=== PATIENT | female | born 1975 | race Caucasian/White ===

== ENCOUNTER 2018-06-08 08:53 | Outpatient (CLI) | payer BC, SELFPAY ==
[2018-06-08 09:37] LABS: ALT 20 U/L (12-78); AST 19 U/L (15-37); Albumin 3.9 g/dL (3.4-5.0); Alkaline Phosphatase 98 U/L (46-116); Anion Gap 8.6 mmol/L (3-11); BUN 15 mg/dL (7-18); Bilirubin, Total 0.4 mg/dL (0.2-1.0); CO2 31.4 mmol/L (21.0-32.0); Calcium 10.2 mg/dL (8.5-10.1); Chloride 102 mmol/L (98-107); Glucose 91 mg/dL (70-100); Potassium 3.9 mmol/L (3.5-5.1); Sodium 142 mmol/L (136-145); Total Protein 7.4 g/dL (6.4-8.2)
[2018-06-09 03:21] LABS: Estradiol <12 pg/ml
[2018-06-09 09:18] LABS: FSH 8.5 mIU/ml
[2018-06-10 05:14] LABS: Vitamin D 25 Total 44.2 ng/ml (30-100)
== END 2018-06-08 09:13 ==
PROVIDERS: PCP Nurse Practitioner; Visit Provider Internal Medicine Hematology & Oncology
DX: C50.411 Malignant neoplasm of upper-outer quadrant of right female breast (principal); Z17.0 Estrogen receptor positive status [ER+]; E55.9 Vitamin D deficiency, unspecified
CPT/HCPCS: 36415; 80053; 82306; 82670; 83001

== ENCOUNTER 2018-07-22 08:05 | Outpatient (CLI) | payer BC, SELFPAY ==
[2018-07-22 08:30] LABS: HCT 43.2 % (36.0-46.0); HGB 14.2 g/dL (12.0-15.5); Mean Corp. HGB Concentration 32.9 g/dL (32.0-36.0); Mean Corpuscular Hemoglobin 30.1 pg (27.0-33.0); Mean Corpuscular Volume 91.5 fL (80-95); Mean Platelet Volume 9.5 fL (8.0-11.0); Platelet Count 212 x1000/uL (130-400); RBC 4.72 m/cumm (4.00-5.20); RBC Distribution Width 12.9 % (11.7-14.6); White Blood Cell Count 3.78 k/cumm (4.4-10.8)
[2018-07-22 09:35] LABS: ALT 24 U/L (12-78); AST 22 U/L (15-37); Albumin 4.1 g/dL (3.4-5.0); Alkaline Phosphatase 104 U/L (46-116); Anion Gap 9.5 mmol/L (3-11); BUN 13 mg/dL (7-18); Bilirubin, Total 0.3 mg/dL (0.2-1.0); CO2 31.5 mmol/L (21.0-32.0); Calcium 9.6 mg/dL (8.5-10.1); Chloride 104 mmol/L (98-107); Cholesterol 218 mg/dL (50-200); Glucose 81 mg/dL (70-100); HDL Cholesterol 88 mg/dL (40-60); LDL CHOLESTEROL 108 mg/dL (<100); Sodium 145 mmol/L (136-145); TSH (W/Ref FT4) 1.81 uIU/mL (0.358-3.74); Total Protein 7.3 g/dL (6.4-8.2); Triglyceride 61 mg/dL (30-150)
[2018-07-23 10:41] LABS: Parathyroid Hormone,Intact 48 pg/ml (19-88)
== END 2018-07-22 08:25 ==
PROVIDERS: PCP Nurse Practitioner; Visit Provider Nurse Practitioner Family
DX: Z00.00 Encounter for general adult medical examination without abnormal findings (principal); E83.52 Hypercalcemia; Z13.220 Encounter for screening for lipoid disorders; N95.1 Menopausal and female climacteric states
CPT/HCPCS: 36415; 80053; 80061; 83721; 85027; 83970; 84443

== ENCOUNTER 2018-10-06 16:44 | Outpatient (REF) | payer BC, SELFPAY ==
[2018-10-06 22:31] LABS: Anion Gap 9.6 mmol/L (3-11); BUN 12 mg/dL (7-18); CO2 29.4 mmol/L (21.0-32.0); CREATININE 0.78 mg/dL (0.55-1.02); Calcium 9.8 mg/dL (8.5-10.1); Chloride 102 mmol/L (98-107); Glucose 103 mg/dL (70-100); Potassium 3.5 mmol/L (3.5-5.1); Sodium 141 mmol/L (136-145)
[2018-10-06 22:36] LABS: HCT 45.8 % (36.0-46.0); HGB 14.9 g/dL (12.0-15.5); Mean Corp. HGB Concentration 32.5 g/dL (32.0-36.0); Mean Corpuscular Hemoglobin 29.9 pg (27.0-33.0); Mean Platelet Volume 11.4 fL (8.0-11.0); Platelet Count 213 x1000/uL (130-400); RBC 4.98 m/cumm (4.00-5.20); RBC Distribution Width 13.6 % (11.7-14.6); White Blood Cell Count 5.23 k/cumm (4.4-10.8)
[2018-10-06 22:42] LABS: Bilirubin Negative (Negative); Blood Moderate (Negative); Clarity Clear; Glucose Negative (Negative); Ketones Negative (Negative); Leukocyte Esterase Small (Negative); Nitrite Negative (Negative); Specific Gravity 1.015 (1.005-1.025); Urobilinogen 0.2 EU/dL (Up TO 0.2)
[2018-10-06 22:48] LABS: Bacteria Moderate HPF (Negative); C & S Indicated? Yes; Casts Negative LPF (Negative); Crystals Negative HPF (Negative); Epithelial Cells Few HPF (Negative); Mucus Negative (Negative); WBC 20-50 HPF (0-5)
== END 2018-10-06 17:04 ==
LOC: NCHCN 16:44
PROVIDERS: PCP Nurse Practitioner; Visit Provider Nurse Practitioner Family
DX: R31.9 Hematuria, unspecified (principal); R35.0 Frequency of micturition; L29.8 Other pruritus
CPT/HCPCS: 80048; 85027; 87077; 81003; 81015; 87086; 87186; 87480; 87510; 87660

== ENCOUNTER 2018-11-24 18:43 | Outpatient (REF) | payer BC, SELFPAY ==
[2018-11-24 21:24] LABS: Bilirubin Negative (Negative); Blood Trace-intact (Negative); Clarity Sl Cloudy (Clear); Glucose Negative (Negative); Ketones Negative (Negative); Leukocyte Esterase Trace (Negative); Nitrite Negative (Negative); Specific Gravity 1.015 (1.005-1.025)
[2018-11-24 22:16] LABS: Bacteria Moderate HPF (Negative); Crystals Moderate Amorphous HPF (Negative); Epithelial Cells Rare HPF (Negative); Other Cells Negative (Negative)
[2018-11-24 22:17] LABS: C & S Indicated? C&S Done As Ordered; Casts Negative LPF (Negative); Mucus Negative (Negative)
== END 2018-11-24 19:03 ==
LOC: NCHCN 18:43
PROVIDERS: PCP Nurse Practitioner; Visit Provider Nurse Practitioner Family
DX: R14.0 Abdominal distension (gaseous) (principal)
CPT/HCPCS: 87077; 81003; 81015; 87086; 87186

== ENCOUNTER 2020-03-29 16:41 | Outpatient (CLI) | payer BC, SELFPAY ==
--- NOTE | 2020-03-29 15:27 | DI.RAD_ITS ---
EXAM: XR TIB/FIB LT CLINICAL HISTORY: LT LEG PAIN M79.605. TECHNIQUE: 2D digital imaging was performed COMPARISON: No exams were available for comparison FINDINGS: BONES: No acute fracture is present. No bony destructive lesion is seen. Visualized portion of knee a nd ankle joints are unremarkable. SOFT TISSUE: Normal. IMPRESSION: No acute fracture or dislocation. DATA REPOSITORY: RADIATION DOSE DELIVERED:
== END 2020-03-29 17:01 ==
PROVIDERS: PCP Nurse Practitioner; Visit Provider Nurse Practitioner Family
DX: M79.605 Pain in left leg (principal)
CPT/HCPCS: 73590

== ENCOUNTER 2022-07-24 16:32 | Outpatient (REF) | payer BC, SELFPAY ==
[2022-07-24 21:15] LABS: Abs Immature Grans 0.02 10^3/uL (0.0-0.06); Absolute Basophil Count 0.04 10^3/uL (0.0-0.2); Absolute Eosinophil Count 0.11 10^3/uL (0.0-0.7); Absolute Lymphocyte Count 1.53 10^3/uL (1.2-3.4); Absolute Monocyte Count 0.48 10^3/uL (0.1-0.8); Absolute Neutrophil Count 4.31 10^3/uL (1.2-6.7); Basophils % 0.6; Eosinophils % 1.7; HCT 44.2 % (36.0-46.0); HGB 14.3 g/dL (11.2-15.7); Immature Grans % 0.3; Lymphocytes % 23.6; MCH 29.5 pg (27.0-33.0); MCHC 32.4 % (32.0-36.0); MCV 91 fL (80-95); MPV 10.6 fL (8.0-11.0); Monocytes % 7.4; Neutrophils % 66.4; Platelet Count 234 10^3/uL (130-400); RBC 4.84 10^6/uL (3.93-5.22); RDW 12.7 % (11.7-14.6); RDW-SD 42.6 fL; WBC 6.49 10^3/uL (4.4-10.8)
[2022-07-24 21:33] LABS: ALT 50 U/L (14-59); AST 40 U/L (15-37); Albumin 4.2 g/dL (3.4-5.0); Alkaline Phosphatase 82 U/L (46-116); Anion Gap 6.5 mmol/L (3-11); BUN 17 mg/dL (7-18); Bilirubin, Total 0.5 mg/dL (0.2-1.0); CO2 28.5 mmol/L (21.0-32.0); CREATININE 0.9 mg/dL (0.55-1.02); Calcium 9.7 mg/dL (8.5-10.1); Chloride 102 mmol/L (98-107); Estimated GFR 78.86 (mL/min/1.73m2); Glucose 83 mg/dL (74-106); Lipase 34 U/L (16-77); Potassium 3.8 mmol/L (3.5-5.1); Sodium 137 mmol/L (136-145); Total Protein 7.6 g/dL (6.4-8.2)
== END 2022-07-24 16:33 | disposition home or self-care (01) ==
LOC: NCHCN 16:32
PROVIDERS: PCP Nurse Practitioner; Visit Provider Family Medicine
DX: R10.9 Unspecified abdominal pain (principal)
CPT/HCPCS: 80053; 83690; 85025

== ENCOUNTER 2023-02-03 18:15 | Outpatient (REF) | payer BC, SELFPAY ==
[2023-02-03 14:26] LABS: Bilirubin Negative (Negative); Blood Small (Negative); Clarity Clear (Clear); Glucose Negative (Negative); Ketones Negative (Negative); Leukocyte Esterase Negative (Negative); Nitrite Negative (Negative); Specific Gravity 1.025 (1.005-1.025); Urobilinogen 0.2 mg/dL (Up to 0.2); pH 6.5 (5-8)
[2023-02-03 14:33] LABS: Bacteria Rare HPF (Negative); C & S Indicated? No; Casts Negative LPF (Negative); Crystals Negative HPF (Negative); Epithelial Cells Rare HPF (Negative); Mucus Trace (Negative); Other Cells Negative (Negative)
== END 2023-02-03 18:16 | disposition home or self-care (01) ==
LOC: NCHCN 18:15
PROVIDERS: PCP Nurse Practitioner Family; Visit Provider Nurse Practitioner Family
DX: R31.9 Hematuria, unspecified (principal)
CPT/HCPCS: 81003; 81015

== ENCOUNTER 2023-02-12 08:22 | Day surgery (SDC) | payer BC, SELFPAY ==
--- NOTE | 2023-02-11 19:55 | W.PM.DSUDISC ---
Date of service: 02/12/23 Time of Service: 10:15 Discharge Plan Disposition Patient Disposition: Home Condition: Good Discharge Details Reason For Visit: screening colonoscopy Attending Provider: Maykel Nelson Primary Care Provider: Cheri Moyer Home Meds and New Rx's Prescriptions: Continued multivitamin Tablet 1 tab PO DAILY biotin 1 mg capsule 1 mg PO DAILY cholecalciferol (vitamin D3) 10 mcg (400 unit) capsule 10 mcg PO DAILY exemestane [Aromasin] 25 mg tablet 25 mg PO DAILY Rx Instructions: must administer after a meal ibuprofen 200 mg capsule 200 mg PO Q6H PRN Discontinued bisacodyl [Dulcolax (bisacodyl)] 5 mg tablet,delayed release (DR/EC) 5 mg PO ONCE Qty: 4 0RF Rx Instructions: Colonoscopy Bowel Prep- Per Instructions polyethylene glycol 3350 17 gram/dose powder 238 g PO ONCE Qty: 238 0RF Rx Instructions: Colonoscopy Bowel Prep- Per Instructions Discharge Instructions Additional Instructions: Gale, your colonoscopy went just fine today. I did not see any signs of tumors, polyps, or really anything worrisome. You did have a little bit of inflammation in your rectum when I first started the procedure. I did do some biopsies here to make sure that it is nothing out of the ordinary. By the end of the procedure, this area really looked normal. In that regards, I do not think you have anything to worry about. We will be on the look out for the results of the biopsies just to be safe. As soon as I get that information I will let you know. 1. If tolerated, consume a soft, low fiber diet for 1-2 days. 2[address] Do not drive, drink alcohol, operate machinery, make critical decisions, or do activities that require coordination or balance for 24 hours. 3. Because air was put into your colon during the procedure, expelling air from your rectum (passing gas or farting) is normal. 4. You may not have a bowel movement for 1-3 days because of the colonoscopy prep. This is normal. 5. Go directly to the emergency room if you notice any of the following: Develop chills (warm to touch), or if you have a thermometer and your temperature is above 101 Difficulty breathing or difficultly swallowing Persistent vomiting Severe abdominal pain, other than gas cramps Severe chest pain Black, tarry stools Any bleeding ? exceeding one tablespoon 6. Call your physician if the site where your intravenous was started becomes red, swollen, painful, and warm to touch. 7. Your physician has reviewed your pre-procedure medications. Please continue to take those medications as previously ordered. You will be given specific information/education regarding any changes to your medications before leaving. Activity:: Activity as Tolerated Diet:: As Tolerated Discharge Orders Discharge Orders: Discharge Order (Routine); Ordered 02/11/23 Ordered By: Maykel Nelson DS: Diagnosis Discharge Diagnosis (1) Screen for colon cancer: Status: Acute Asessment and Plan: Mild inflammation of the rectum, biopsies were performed, otherwise negative screening colonoscopy. I will follow-up on the biopsy results
--- NOTE | 2023-02-11 19:57 | COLE_ITS ---
Date of service: 02/12/23 Time of Service: 10:16 Colonoscopy Report Date of procedure: 02/12/23 Pre-op diagnosis general: screening colonoscopy Post-op diagnosis procedure note: other (Negative screening colonoscopy) Procedure: colonoscopy with rectal biopsies Surgeon: Maykel Nelson Anesthesia Type: General:No Airway Estimated blood loss (mL): 5 Pathology: other (Rectal biopsies) Complications: None Disposition: same day Indications: Gale is 47 years old and she is here for her first screening colonoscopy Prep: Miralax/Dulcolax Procedure Start Time: 09:42 Procedure End Time: 09:59 Retraction Time: 13 Findings: Mild inflammation of the rectum at the start of the procedure that had improved by the end Procedure Description: After the induction of monitored anesthetic care, and with the patient in left lateral decubitus position, I began by performing an external anorectal exam.? Perineum and skin were normal, as was the anal verge.? There was no evidence of external hemorrhoids.? Next, I performed a digital rectal exam.? I did not appreciate any abnormal findings.? Next, I advanced a colonoscope into the rectal vault.? I performed retroflexion.? This appeared normal.? As I turned the camera back antegrade, there was just a little bit of linear inflammation within the midportion of the rectum. Essentially, there were punctate areas of normal- appearing mucosa, with mild surrounding erythema. I did perform some random biopsies here. This was done with cold forceps and there was minimal bleeding. Using insufflation, I then advanced the colonoscope beyond the rectal folds and into the sigmoid colon before advancing towards the cecum.? The quality of the prep was [].? The scope was noted to be in the cecum by identification of the ileocecal valve and appendiceal orifice.? I then began withdrawing the colonoscope using repeated irrigation as necessary for full evaluation of the colonic mucosa. ?Once the scope was withdrawn to the level of the rectum, great care was taken to examine portions of the rectal folds.? Circular areas of erythema were largely resolved by this portion. The biopsy sites looked fine. Finally, the scope was withdrawn and the patient was brought to the same-day surgery recovery unit as the anesthetic wore off. ?The findings and instructions were shared with the patient prior to discharge.
[2023-02-12 08:35] VITALS: BP 126/89; PULSE 85; RESP 17; TEMP 37; O2SAT 100
--- NOTE | 2023-02-12 09:12 | W.ANESPRE ---
General Info Date of Service Date Performed: 02/12/23 Height: 5 ft 5 in Weight: 64.9 kg Body Mass Index (BMI): 23.8 Surgical Procedure: Operation Date: 02/12/23 09:50 Proposed Procedure Side Surgeon p Zeinab Nelson MD Meds Allergies and Home Medications Allergies Allergy/AdvReac Type Severity Reaction Status Date / Time No Known Drug Allergies Allergy Verified 02/12/23 08:35 Home Medication Medication Instructions Recorded biotin 1 mg capsule 1 mg PO DAILY 11/14/22 cholecalciferol (vitamin D3) 10 10 mcg PO DAILY 11/14/22 mcg (400 unit) capsule exemestane 25 mg tablet (Aromasin) 25 mg PO DAILY 11/14/22 ibuprofen 200 mg capsule 200 mg PO Q6H PRN 11/14/22 multivitamin 1 tab PO DAILY 01/28/23 Current Visit Medications: Current Medications Generic Name Dose Route Start Last Admin Trade Name Freq PRN Reason Stop Dose Admin Hyoscyamine Sulfate 0.125 mg 02/11/23 19:59 Hyoscyamine 0.125 Mg Sl/Oral/Chew SL 03/13/23 19:58 DIRECTED PRN Ondansetron HCl 4 mg 02/11/23 19:59 Ondansetron 4 Mg/2 Ml Vial IVP 03/13/23 19:58 Q4H PRN PRN Nausea / Vomiting PFSH Active Problems Active Problems: Problem Status Onset Code Screen for colon cancer Z12.11 Medical History Medical History Breast cancer, right Surgical History Surgical History Hx of right mastectomy Tobacco Smoking/Tobacco Use Status: Former Tobacco Use Alcohol Alcohol Intake: current Alcohol intake frequency: a few times a week Substance Use Substance use: Never Substance use type: does not use Vital Signs and Lab Results Vital Signs Most Recent Vital Signs in EMR: Most Recent Vital Signs Temp Pulse Resp BP Pulse Ox 37.0 C 85 17 126/89 100 02/12/23 08:35 02/12/23 08:35 02/12/23 08:35 02/12/23 08:35 02/12/23 08:35 Point of Care Results Point of Care Results: POC- Test(urine) Negative 02/12/23 08:48 Lab Results Blood Type / Crossmatch: No Data to Display Complete Blood Count: No Data to Display Complete Metabolic Panel: No Data to Display Liver Function Panel: No Data to Display Coagulation Panel: No Data to Display Cardiac Panel: No Data to Display Arterial Blood Gas: No Data to Display Venous Blood Gas: No Data to Display Pancreas Panel: No Data to Display Thyroid Panel: No Data to Display Infectious Disease: No Data to Display Blood Cultures: No Data to Display Toxicology Panel: No Data to Display Panel: No Data to Display Anesthesia Assessment and Plan Anesthesia History Personal History: No History of Anesthesia Complications Family History: No Family History of Anesthesia Complications Exercise Tolerance Exercise Tolerance: Metabolic Equivalents>4 Pertinent Negatives Pertinent Negatives: No Symptoms of GERD, No Major Cardiovascular Symptoms or Complaints, No Major Pulmonary Symptoms or Complaints (childhood asthma) and No History of CVA/TIA Cardiac & Pulmonary Exam Cardiac Exam: Normal S1/S2 Heart Sounds Pulmonary Exam: Clear Bilateral Breath Sounds Implantable Cardiac Device Does patient have a Pacemaker or an ICD?: No Airway Exam Known Difficult Airway: No Mallampati Class: 2 Mouth Opening: Normal (> 3cm) Thyromental Distance: Greater than 3 cm Neck Range of Motion: Full ROM Neck Circumference: Normal Teeth Condition: Normal Dentition ASA Classification ASA Score: ASA 2 Emergency Case?: No NPO Status NPO Status: NPO Clears >2 hours, Solids >8 hours Status Status: Not Relevant due to Medical History Anesthesia Plan Resuscitation Status: Full Code Anesthesia Technique: General Anesthesia Airway Planned: Natural Airway Monitors Used: Standard Monitors Preoperative Comments:: tubal ligation in the past as well. Right limb restriction, right mastectomy.
[2023-02-12 09:16] VITALS: BMI 23.8
[2023-02-12] MEDS: Lactated Ringers 1,000 ML 80 ML IV (09:29)
--- NOTE | 2023-02-12 09:45 | BOWEL_PTH ---
PATIENT: Gale Hope LOC: [facility] U#:[id number] AGE/SX: 47/F ROOM: RE02/12/[address]: Maykel Nelson MD : 1975 BED: DIS: 02/12/2023 SPEC #: [id number] RECD: 02/12/23 12:33 STATUS: BRET REQ #: [id number] MARNI: 02/12/23 09:[address]: Maykel Nelson DEPT: Surgical Specimen RECD BY: Jaquelin Martin ENTERED: 02/12/23 12:34 SP TYPE: Bowel OTHR DR: Cheri Moyer Tissues: 1 - BIOPSY BOWEL Procedures: GROSS AND MICRO LEVEL 4 Comments: [id number]
[2023-02-12 10:05] VITALS: BP 108/70; PULSE 93; RESP 16; TEMP 36.5; O2SAT 100
[2023-02-12 10:35] VITALS: BP 117/89; PULSE 69; RESP 16; TEMP 36.5; O2SAT 100
--- NOTE | 2023-02-12 10:40 | W.ANESPOSTOP ---
Postoperative Evaluation Date, Time and Location Date Performed: 02/12/23 Time Performed: 10:14 Patient Location: Day Surgery Unit Vital Signs Most Recent Imported Vital Signs: Most Recent Vital Signs Temp Pulse Resp BP Pulse Ox 36.5 C 93 H 16 108/70 100 02/12/23 10:05 02/12/23 10:05 02/12/23 10:05 02/12/23 10:05 02/12/23 10:05 Pain Score Most Recent Pain Score: Most Recent Pain Score Pain Level 0 02/12/23 10:05 Assessment Mental Status: Awake (Alert & Oriented to Patient Baseline) Airway and Respiratory Function: Patent airway with normal (patient baseline) respiratory exam Cardiovascular Function: Hemodynamically Stable Hydration Status: Adequately Hydrated Nausea & Vomiting: No Nausea or Vomiting Pain: Pt. Denies Any Pain Peripheral Nerve Block: Patient did not receive a nerve block
== END 2023-02-12 10:49 | disposition home or self-care (01) ==
PROVIDERS: PCP Nurse Practitioner Family; Visit Provider Surgery
PROC: 0DJD8ZZ Inspection of Lower Intestinal Tract, Via Natural or Artificial Opening Endoscopic (ICD-10-PCS; CPT 45378; principal; 2023-02-12 09:45)
DX: Z12.11 Encounter for screening for malignant neoplasm of colon (principal); Z85.3 Personal history of malignant neoplasm of breast
CPT/HCPCS: 45378; 81025; 88305; J2001; J2405

== ENCOUNTER → 2023-09-24 03:47 | Outpatient (CLI) | payer BC, SELFPAY ==
--- NOTE | 2023-09-24 | DI.MRI_ITS ---
Exam(s) MR LUMBAR SPINE WO/W EXAM: MR LUMBAR SPINE WO/W CLINICAL HISTORY: C50.919 Stage III Breast CA,M54.50 Lt sided LBP w/o sciatica. TECHNIQUE: Multiplanar multisequence MRI of the Lumbar spine was performed. Both pre and post contra st infused sequences were performed. Contrast injected was IV Dotarem 13 mL COMPARISON: No exams were available for comparison FINDINGS: Five lumbar vertebrae are presumed. Conus medullaris is at normal level. There is no evidence of conus mass nor subjacent clumping of in trathecal nerve roots to suggest arachnoiditis. The distal thecal sac appears unremarkable.There is no evidence of Tarlov intrasacral cysts nor other significant findings within the sacral canal there are no enhancing nodules along the cauda equina nor within the intradural and epidural spaces. Bones:No fractures nor listhesis. There are Modic type 1 sub endplate marrow edema findings on the l eft side of the L4-5 disc space (see below). In the right side of the L4 vertebral body there is a n onexpansile bone lesion measuring 2.4 cm craniocaudal by 2.3 cm wide by 2.5 cm AP. This exhibits sig nal characteristics of a benign intraosseous hemangioma. In the posterior aspect of the L1 vertebral body there is a smaller appearing nonexpansile bone lesion measuring 1.0 cm AP x 1.0 cm wide by 1.0 cm craniocaudal. This does not exhibit typical signal characteristics of a hemangioma on STIR and al so exhibits some contrast enhancement. I suspect that this is an atypical hemangioma but cannot excl ude metastatic lesion, given the history here. Similar appearing finding at the S2 level of the sacr um With respect to the individual disc levels... T12-L1: Unremarkable L1-2: Normal disc height and signal. No disc herniation nor central canal stenosis.No foraminal steno sis L2-3: Normal disc height. No disc herniation nor central canal stenosis.No foraminal stenosis.No face t arthropathy. L3-4: Normal disc height. There is relatively symmetrical annular bulging at this level. There is a lso a tiny posterolateral right disc protrusion more evident on the sagittal than on axial images. D oes not cause significant foraminal stenosis on the right side. Central canal dimensions are lower n ormal. No foraminal stenosis on the left side. No significant facet arthropathy. L4-5: Minimal decreased disc height on the left side of the disc space where there are Modic type 1 s ub endplate marrow edema changes confined to the left side of the space and extending into lateral le ft osteophytes this level. There is mild annular bulging without a dominant disc herniation at this level. Annular bulging mildly effaces the anterior thecal sac with mild central canal stenosis. No prominent facet arthropathy. No significant foraminal stenosis on either side at this level. L5-S1: Normal disc height and signal. No disc herniation or central canal stenosis. No foraminal st enosis. Minimal facet joint degenerative changes evident. Soft tissues: paraspinal soft tissues appear unremarkable. IMPRESSION: 1. There is a very small posterolateral right disc protrusion at L3-4 level. There is no significant canal stenosis nor foraminal stenosis on either side at this level. 2. There are Modic type 1 sub endplate marrow edema changes on the left side of the L4-5 disc space. At this location there is mild disc height loss and marginal osteophytes off the lateral aspect of t he disc space but without a true disc herniation evident and no evidence of significant foraminal blaise nosis on either side at this level nor evidence of central canal stenosis. 3. There are no enhancing lesions in the epidural space nor in the cauda equina, given the history he re. 4. There is a benign intraosseous hemangioma in the right side of L4 vertebral body measuring 2.4 x 2.3 x 2.5 cm. 5. In the posterior aspect of L1 vertebral body there is a smaller 1.0 x 1.0 x 1.0 cm non expansile bone lesion which exhibits some enhancement and does not exhibit typical signal characteristics of a benign intraosseous hemangioma. It may represent an atypical hemangioma but given the history here c annot exclude a subtle early metastatic bone lesion. For this reason I recommend follow-up whole bod y nuclear bone scan. DATA REPOSITORY:
[2023-09-24] MEDS: Normal Saline Flush 10 ML SYR IVP (09:40)
[2023-09-24] MEDS: Gadoterate meglumine 20 ML SYRINGE 13 ML IVP (09:41)
[2023-09-24 09:46] LABS: Anion Gap 8.3 mmol/L (3-11); BUN 12 mg/dL (7-18); CO2 28.7 mmol/L (21.0-32.0); CREATININE 0.8 mg/dL (0.55-1.02); Calcium 9.3 mg/dL (8.5-10.1); Chloride 104 mmol/L (98-107); Estimated GFR 90.27 (mL/min/1.73m2); Glucose 87 mg/dL (74-106); Potassium 4.3 mmol/L (3.5-5.1); Sodium 141 mmol/L (136-145)
== END ==
PROVIDERS: PCP Nurse Practitioner Family; Visit Provider Internal Medicine Hematology & Oncology
DX: M51.36 Other intervertebral disc degeneration, lumbar region (principal)
CPT/HCPCS: 72158; 80048

== ENCOUNTER 2023-10-01 18:56 | Outpatient (REF) | payer BC, SELFPAY ==
[2023-10-01 21:24] LABS: Bacteria Few HPF (Negative); C & S Indicated? C&S Done As Ordered; Casts Negative LPF (Negative); Crystals Negative HPF (Negative); Epithelial Cells Few HPF (Negative); Mucus Negative (Negative); RBC 0-2 HPF (0-2); WBC 20-50 HPF (0-5)
== END 2023-10-01 18:57 | disposition home or self-care (01) ==
LOC: NCHCN 18:56
PROVIDERS: PCP Nurse Practitioner Family; Visit Provider Nurse Practitioner Family
DX: R31.9 Hematuria, unspecified (principal); B96.20 Unspecified Escherichia coli [E. coli] as the cause of diseases classified elsewhere
CPT/HCPCS: 87077; 81015; 87086; 87186

== ENCOUNTER 2024-09-19 14:10 | Outpatient (REF) | payer BC, SELFPAY | END 2024-09-19 14:11 | disposition home or self-care (01) | LOC: NCHCN 14:10 | PROVIDERS: PCP Nurse Practitioner Family; Visit Provider Nurse Practitioner Family | DX: R35.0 Frequency of micturition (principal); R82.89 Other abnormal findings on cytological and histological examination of urine; B96.29 Other Escherichia coli [E. coli] as the cause of diseases classified elsewhere | CPT/HCPCS: 87077; 87086; 87186 ==

== ENCOUNTER 2024-09-28 15:56 | Outpatient (REF) | payer BC, SELFPAY ==
[2024-09-28 21:13] LABS: Bilirubin Negative (Negative); Blood Trace-intact (Negative); Clarity Clear (Clear); Glucose Negative (Negative); Ketones Negative (Negative); Leukocyte Esterase Trace (Negative); Nitrite Negative (Negative); Urobilinogen 0.2 mg/dL (Up to 0.2); pH 6.5 (5-8)
[2024-09-28 22:13] LABS: Bacteria Negative HPF (Negative); Crystals Negative HPF (Negative); Epithelial Cells Rare HPF (Negative); Mucus Negative (Negative); RBC 0-2 HPF (0-2); WBC 0-2 HPF (0-5)
[2024-09-28 22:14] LABS: C & S Indicated? No; Casts Negative LPF (Negative)
== END 2024-09-28 15:57 | disposition home or self-care (01) ==
LOC: NCHCN 15:56
PROVIDERS: PCP Nurse Practitioner Family; Visit Provider Nurse Practitioner Family
DX: R31.9 Hematuria, unspecified (principal); R82.89 Other abnormal findings on cytological and histological examination of urine; B96.29 Other Escherichia coli [E. coli] as the cause of diseases classified elsewhere
CPT/HCPCS: 81003; 81015

== ENCOUNTER 2024-11-07 18:28 | Outpatient (REF) | payer BC, SELFPAY ==
[2024-11-07 22:12] LABS: HCT 42.3 % (36.0-46.0); HGB 13.8 g/dL (11.2-15.7); MCH 30.1 pg (27.0-33.0); MCHC 32.6 % (32.0-36.0); MCV 92 fL (80-95); MPV 10.7 fL (8.0-11.0); Platelet Count 219 10^3/uL (130-400); RBC 4.58 10^6/uL (3.93-5.22); RDW 12.8 % (11.7-14.6); RDW-SD 43.3 fL; WBC 5.86 10^3/uL (4.4-10.8)
[2024-11-07 22:27] LABS: ALT 34 U/L (14-59); AST 23 U/L (15-37); Albumin 4.1 g/dL (3.4-5.0); Alkaline Phosphatase 86 U/L (46-116); Anion Gap 6.8 mmol/L (3-11); BUN 14 mg/dL (7-18); Bilirubin, Total 0.5 mg/dL (0.2-1.0); CO2 32.2 mmol/L (21.0-32.0); CREATININE 0.9 mg/dL (0.55-1.02); Calcium 9.8 mg/dL (8.5-10.1); Calculated LDL 148 mg/dL (<100); Chloride 102 mmol/L (98-107); Cholesterol 271 mg/dL (<200); Estimated GFR 77.88 (mL/min/1.73m2); Glucose 95 mg/dL (74-106); HDL Cholesterol 105 mg/dL (>or=50); Potassium 3.9 mmol/L (3.5-5.1); Sodium 141 mmol/L (136-145); Total Protein 7.1 g/dL (6.4-8.2); Triglyceride 92 mg/dL (<150)
[2024-11-08 23:24] LABS: CA 125 10 U/mL (<30)
== END 2024-11-07 18:29 | disposition home or self-care (01) ==
LOC: NCHCN 18:28
PROVIDERS: PCP Nurse Practitioner Family; Visit Provider Nurse Practitioner Family
DX: D25.9 Leiomyoma of uterus, unspecified (principal); Z00.00 Encounter for general adult medical examination without abnormal findings
CPT/HCPCS: 80053; 80061; 85027; 86304